=== PATIENT | female | born 1950 | race Caucasian/White ===

== ENCOUNTER 2022-05-28 07:40 | Outpatient (CLI) | payer MEDICARE, SELFPAY ==
[2022-05-28 08:45] LABS: Glucose, Point-of-Care* 167 mg/dl (60-115)
--- NOTE | 2022-05-28 10:38 | W.ANESCHARGE ---
Anesthesia Charges Start Date/Time Anesthesia Start Date: 05/28/22 Anesthesia Start Time: 08:37 Stop Date/Time Anesthesia Stop Date: 05/28/22 Anesthesia Stop Time: 09:40 Summary Emergency: No Extremes of Age: Over 68-CPT 24549
--- NOTE | 2022-05-28 11:32 | W.ANESCHARGE ---
Anesthesia Charges Start Date/Time Anesthesia Start Date: 05/28/22 Anesthesia Start Time: 08:37 Stop Date/Time Anesthesia Stop Date: 05/28/22 Anesthesia Stop Time: 09:40 Summary Emergency: No Extremes of Age: Over 68-CPT 44699
== END 2022-05-28 07:41 | disposition home or self-care (01) ==
PROVIDERS: PCP Family Medicine; Visit Provider Surgery
DX: D12.7 Benign neoplasm of rectosigmoid junction (principal); D12.2 Benign neoplasm of ascending colon; D12.4 Benign neoplasm of descending colon; D12.5 Benign neoplasm of sigmoid colon; R19.5 Other fecal abnormalities
CPT/HCPCS: 00811; 45381; 45385; 82947; 88305; 99100; J2704

== ENCOUNTER 2023-06-23 14:20 | Outpatient (CLI) | payer MEDICARE, SELFPAY ==
[2023-06-23 22:03] LABS: Basophils Absolute Auto 0.03 K/uL (0.00-0.30); Basophils Percent Auto 0.3 % (0.0-3.0); Eosinophils Absolute Auto 0.18 K/uL (0.00-0.50); Hematocrit 37.8 % (33.0-51.0); Hemoglobin* 12.1 gm/dL (12.0-16.0); Immature Granulocytes Abs Auto 0.05 K/uL (0.00-0.30); Immature Granulocytes Pct Auto 0.5 %; Lymphocytes Absolute Auto 3.29 K/uL (0.90-2.90); Lymphocytes Percent Auto 35.8 % (20-44); Mean Corpuscular HGB Conc 32 gm/dL (32-36); Mean Corpuscular Hemoglobin 32 pg (26-34); Mean Corpuscular Volume 100 fL (80-100); Neutrophils Percent Auto 52.4 % (42.0-72.0); Platelet Count* 219 K/uL (140-440); RDW Coefficient of Variation % 13.5 % (11.5-15.5); Red Blood Count 3.78 m/uL (4.00-5.20); White Blood Count* 9.18 K/uL (4.50-11.00)
[2023-06-23 22:05] LABS: Slide Review Reflex No
[2023-06-23 22:16] LABS: Chloride* 104 mmol/L (96-114); Potassium* 4.5 mmol/L (3.6-5.1); Sodium* 140 mmol/L (135-149)
[2023-06-23 22:18] LABS: Alanine Aminotransferase* 34 U/L (4-35); Cholesterol* 174 mg/dL (90-199); Creatinine* 0.6 mg/dL (0.5-1.5); Estimated Glomerular Filt Rate 94 ml/min
[2023-06-23 22:19] LABS: Blood Urea Nitrogen* 18 mg/dL (7-30); Calcium* 9.6 mg/dL (8.4-10.6); Carbon Dioxide* 24 mmol/L (20-32); Glucose* 117 mg/dL (60-115); Triglycerides* 242 mg/dL (40-149)
[2023-06-23 22:20] LABS: HDL Cholesterol* 68 mg/dL (>=50); LDL Cholesterol Calculated 58 mg/dL (<100)
== END 2023-06-23 14:21 | disposition home or self-care (01) ==
PROVIDERS: PCP Family Medicine; Visit Provider Family Medicine
DX: E11.9 Type 2 diabetes mellitus without complications (principal); E78.5 Hyperlipidemia, unspecified; I10 Essential (primary) hypertension
CPT/HCPCS: 80048; 80061; 84460; 85025

== ENCOUNTER 2024-07-06 09:52 | Outpatient (CLI) | payer MEDICARE, SELFPAY | END 2024-07-06 09:53 | disposition home or self-care (01) | PROVIDERS: PCP Family Medicine; Visit Provider Family Medicine | DX: E78.5 Hyperlipidemia, unspecified (principal); E55.9 Vitamin D deficiency, unspecified; I10 Essential (primary) hypertension; E11.9 Type 2 diabetes mellitus without complications | CPT/HCPCS: 80048; 80061; 84460 ==

== ENCOUNTER 2024-07-23 08:43 | Outpatient (CLI) | payer MEDICARE, SELFPAY | END 2024-07-23 08:44 | disposition home or self-care (01) | LOC: RAD 08:43 | PROVIDERS: PCP Family Medicine; Visit Provider Family Medicine | DX: R01.1 Cardiac murmur, unspecified (principal); I35.0 Nonrheumatic aortic (valve) stenosis | CPT/HCPCS: 93306 ==

== ENCOUNTER 2024-10-06 08:54 | Outpatient (CLI) | payer MEDICARE, SELFPAY ==
--- OUTSIDE RECORDS SUMMARY | 2024-10-06 08:57 | XMS_ITS | Clinical Summary ---
Author Organization [facility] Address [place], [place] [address] Care Team Providers Care Uniform Room Attendant Name Role Phone Jem Diaz MD Primary Care Provider + Allergies No known active allergies Medications Medication Sig Dispensed Refills Start Date End Date Status lisinopril (PRINIVIL; ZESTRIL) 20 mg tabletIndications:Essen tial hypertension Take 1 tablet by mouth once daily. 90 tablet 3 09/11/2018 Active metoprolol succinate (TOPROL XL) 100 mg Sustained-Release tabletIndications:Essen tial hypertension Take 1 tablet by mouth once daily. 90 tablet 3 09/11/2018 Active atorvastatin (LIPITOR) 20 mg tabletIndications:Hyper lipidemia, unspecified hyperlipidemia type Take 1 tablet by mouth once daily. 90 tablet 3 09/11/2018 Active WalkerIndications:Prima ry osteoarthritis of both hips Walker with front wheels for home use. 1 Device 09/11/2018 Active aspirin (ECOTRIN) 81 mg enteric coated tabletIndications:Statu s post total hip replacement, right Take 1 Tablet (81 mg) by mouth once daily with a meal. 09/06/2024 Active metFORMIN (GLUCOPHAGE XR) 500 mg Extended-Release tablet Take 1,000 mg by mouth two times daily with meals. 08/09/2024 Active glimepiride (AMARYL) 4 mg tablet Take 4 mg by mouth once daily with a meal. 08/09/2024 Active VITAMIN B COMPLEX ORAL Take 1 Tablet by mouth once daily. Active Active Problems Problem Noted Date Diagnosed Date Morbid (severe) obesity due to excess calories 1 Type 2 diabetes mellitus wit h diabetic nephropathy, with long-term current use of insulin 09/06/2024 Status post total hip replacement, right 020 Primary osteoarthritis of left hip 09/17/2019 S/P hip replacement, left 09/17/2019 Hyperlipidemia 07/21/2016 Hypertension 07/12/2016 Left Hip osteoarthritis 07/13/2012 Degeneration of lumbar or lumbosacral interverte bral disc 07/13/2012 Vitamin D deficiency 05/02/2011 Esophageal reflux 01/07/2008 Resolved Problems Problem Noted Date Diagnosed Date Resolved Date Hyperlipidemia 04/17/2010 07/21/2016 Unspecified essential hypertension 01/07/2008 07/12/2016 HYPOTHYROIDISM 01/07/2008 03/30/2013 Encounters Date Type Department Care Team Description 09/24/2024 Telephone [facility] [employer] [address] [facility] [address] [place] [phone] Dane Sparks MD Surgery Scheduled (TAVR scheduling. ) 09/16/2024 Telephone [facility] [address] [place] [address] Dane Sparks MD Questions 09/06/2024 4:00 PM CDT Office Visit [facility] [employer] [address] [place] [address] [place] [phone] Noel Osorio MD Shortness Of Breath 09/06/2024 3:30 PM CDT Office Visit [facility] [employer] [address] [place] [address] [place] [phone] Dane Sparks MD CV Valve New (VALVE NEW: , CT TAVR PRIOR, NEEDS EKG, KCCQ12, 5M WALK, LETTER SENT, JLS//PCP: Jem Diaz MD/) 09/06/2024 1:40 PM CDT - 09/06/2024 11:59 PM CDT Hospital Encounter [facility] [address] [place] [address] Jem Tse MD Nonrheumatic aortic valve disorder 09/06/2024 Travel 08/19/2024 8:30 AM CDT Office Visit [facility] at [address] [address] Jem Tse MD Consult 07/23/2024 9:00 AM CDT Ancillary Procedure [facility] [address] [place] [address] from Last 3 Months Immunizations Name Administration Dates Next Due Influenza, High-dose Inactivated 07/12/2016 Influenza, Inactivated IIV3 (Age 65+ Years) Preserv Free 09/11/2018 Pneumococcal Poly,23-Valent (Pneumovax) 04/19/20 14 Pneumococcal conj 13-Valent (Prevnar 13) 016 Td (Age >=7 Years) 11/03/2006 Tdap 07/12/2016 Zoster (Zostavax-ZVL, live) 05/30/2014 Family History Medical History Relation Name Comments Cancer-breast Daughter BRIONNA Hypertension Daughter BRIONNA Heart Disease Mother CHF Hypertension Mother Heart Disease Paternal Grandfather SC Relation Name Status Comments Daughter BRIONNA Alive Mother Paternal Grandfather Social History Tobacco Use Types Packs/Day Years Used Date Smoking Tobacco: Never Smokeless Tobacco: Never Tobacco Cessation:Counseling Given: Yes Alcohol Use Standard Drinks/Week Comments Not Currently 0 (1 standard drink = 0.6 oz pur e alcohol) social events, 1-2 PHQ-2 Answer Date Recorded PHQ-2 Score 2 01/18/2019 Sex and Gender Information Value Date Recorded Sex Assigned at Not on file Gender Identity Not on file Sexual Orientation Not on file Obstetrics History Last Filed Vital Signs Vital Sign Reading Time Taken Comments Blood Pressure 145/69 09/06/2024 3:00 PM CDT Pulse 68 09/06/2024 3:00 PM CDT Temperature 36.3 C (97.3 F) 12/03/2019 8:16 AM MRI SPECIALIST Respiratory Rate 14 08/19/2024 8:58 AM CDT Oxygen Saturation 93% 09/06/2024 3:00 PM CDT Inhaled Oxygen Concentration - - Weight 115.3 kg (254 lb 1.6 oz) 09/06/2024 3:00 PM CDT Height 162.6 cm (5' 4) 09/06/2024 3:00 PM CDT Body Mass Index 43.62 09/06/2024 3:00 PM CDT Plan of Treatment Upcoming Encounters Date Type Department Care Team (Late st Contact Info) Description 10/27/2024 1:30 PM MRI SPECIALIST Orders Only [facility] [address] [place] [address] [place] [phone] 10/27/2024 2:00 PM MRI SPECIALIST Office Visit [facility] [address] [place] [address] [place] [phone] 11/04/2024 2:30 PM MRI SPECIALIST Appointment [facility] [address] [place] [address] Dane Sparks MD [address] [address] Health Maintenance Due Date Last Done Comments Hepatitis C screening for ag e 18-79 1966 DEXA/DXA scan for age 65+ 2013 Medicare Wellness for age 65+ 2013 Zoster (shingles) series for age 50+ (2 of 3) 07/25/2014 05/30/2014 Depression screening for age 12+ 09/11/2019 09/11/2018, 06/03/2017, 07/12/2016 RSV vaccine for adults or (1 - 1-dose 75+ series) 2023 Influenza for age 65+ 07/18/2024 09/11/2018, 016 BMI (ht and wt on same day) for age 18+ 09/06/2025 09/06/2024, 09/11/2018, 06/03/2017, Additional history exists Tetanus booster 07/12/2026 07/12/2016, 11/03/2006 Pneumococcal series for age 65+ Completed , 04/19/2014 Tdap Completed 07/12/2016 COVID-19 vaccine series Completed 08/21/20, 02/06/2022, 02/20/2021, Additional history exists Medical Devices Implanted Type Area Fabricator Artificial Breast Device Identifier Shelf Expiration Date Model / Serial / Lot Cluster Acetabular Shell Implanted:Qty: 1 on 09/17/2019 by Blas Miranda MD at [facility] Left: Hip [facility] 02/16/2024 / / [id number] 0deg Polyethylene Liner Implanted:Qty: 1 on 09/17/2019 by Blas Miranda MD at [facility] Left: Hip [employer] [facility] 01/20/2024 / / [id number] 132 Deg Neck Angle Hip Stem Implanted:Qty: 1 on 09/17/2019 by Blas Miranda MD at [facility] Left: Hip [employer] [facility] 06/12/2024 / / [id number] Ceramic V40 Femoral Head Implanted:Qty: 1 on 09/17/2019 by Blas Miranda MD at [facility] Left: Hip [employer] 07/26/2024 / / [id number] Shell Implanted:Qty: 1 on 11/30/2019 by Blas Miranda MD at [facility] Right: Hip [employer] 04/20/2024 / / [id number] Poly Insert Implanted:Qty: 1 on 11/30/2019 by Blas Miranda MD at [facility] Right: Hip [facility] 09/07/2024 / / [id number] Hip Stem Implanted:Qty: 1 on 11/30/2019 by Blas Miranda MD at [facility] Right: Hip [employer] [facility] 07/22/2024 / / [id number] Femoral Head Implanted:Qty: 1 on 11/30/2019 by Blas Miranda MD at [facility] Right: Hip [facility] 08/12/2024 / / [id number] Procedures Procedure Name Priority Date/Time Associated Diagnosis Comments EKG 12 LEAD Routine 09/06/2024 3:15 PM CDT Nonrheumatic aortic valve disorder CTA CHEST ABD PELVIS TAVR - DUAL READ Routine 09/06/2024 2:21 PM CDT Nonrheumatic aortic valve disorder CREATININE,ISTAT Routine 09/06/2024 2:11 PM CDT ECHO TTE COMPLETE WO CONTRAST Routine 07/23/2024 10:10 AM CDT Cardiac murmur, unspecified from Last 3 Months Results * EKG 12 LEAD (09/06/2024 3:15 PM CDT) Interpretation Normal sinus rhythm Minimal voltage criteria for LVH, may be normal variant ( R in aVL ) Cannot rule out Anterior infarct , age undetermined Abnormal ECG Ventricular Rate 77 BPM Atrial Rate 77 BPM P-R Interval 202 ms QRS Duration 80 ms QT 358 ms QTc 405 ms P [place] 22 degrees R [place] 3 degrees T [place] 64 degrees 09/06/2024 3:15 PM CDT 09/07/2024 11:44 AM CDT Dane Sparks MD EKG ORD * CTA CHEST ABD PELVIS TAVR - DUAL READ (09/06/2024 2:21 PM CDT) Anatomical Region Laterality Modality CHEST, Abdomen, Pelvis Computed Tomography Narrative 09/09/2024 8:00 AM CDT Images from the original result were not included. STUDY: CTA CHEST, ABDOMEN, AND PELVIS PRE-TAVR Study date: 09/06/2024 Indication: 74-year-old female with morbid obesity and severe aortic valvular stenosis has been referred for evaluation of aortic valve annulus, thoracic aorta anatomy, and arterial access anatomy to determine candidacy for transcatheter aortic valve replacement (TAVR) procedure. STUDY PARAMETERS: Scanner: Siemens Definition Force Contrast: 120 ml of Omnipaque 350 Scan protocol: Helical with dose modulation for heart image acquisition. High-pitch for chest, abdomen, and pelvis image acquisition. Radiation dose length product: 2678 for heart and chest, abdomen, pelvis imaging. Image quality: Good FINAL IMPRESSIONS: 1. Bicuspid AV with fusion of the right and left coronary cusps (type I) with severe calcification and reduced leaflet opening. AV calcium score is 3095 AU. 2. Nonobstructive coronary artery disease - no need for coronary angiogram prior to TAVR. 3. Mildly dilated ascending aorta 41 x 40 mm. Normal abdominal aortic size and morphology. Mild atheromatous disease through the entire aorta. 4. Borderline left main height take off at 10.2 mm. 5. Best fitting TAVR device option is #29 mm S3 which has a lot of oversizing (14.8%). The #29 mm Evolut is not possible due to average SoV < 29 mm. - Steep LV-Ao angle: 73 degrees. 6. Transfemoral access while possible for either side for caliber perspective is challenged by the deep subcutaneous pannus (> 7-8 cm). Carotid access is possible from either side. 7. Elevated myocardial ECV=37% 8. Please see radiology section for noncardiovascular findings. FINDINGS: Aortic valve annulus and outflow tract: Aortic valve: Bicuspid AV with fusion of the right and left coronary cusps (type I) with severe calcification and reduced leaflet opening excursion. Ca score 3095. Projection angle recommendations: Arterial access: Pelvic arteries (RIGHT): Common iliac artery: Nonobstructive atherosclerosis Internal iliac artery: Nonobstructive atherosclerosis External iliac artery: Nonobstructive atherosclerosis Common femoral artery: Patent Pelvic arteries (LEFT): Common iliac artery: Nonobstructive atherosclerosis Internal iliac artery: Nonobstructive atherosclerosis External iliac artery: Nonobstructive atherosclerosis Common femoral artery: Patent Other findings: Coronary arteries: Dominance: Right Left main: Normal. Left anterior descending artery: Nonobstructive coronary artery disease in the proximal and mid vessel. Left circumflex artery: Nonobstructive coronary artery disease in the proximal vessel. Right coronary artery: Nonobstructive coronary artery disease in the proximal vessel. Left atrium: Normal contrast opacification. Left ventricle septal ECV: 37% when using an estimated Hct 40% (no recent Hct available). Pericardium: Normal without effusion. Thoracic aorta: Normal branching pattern, type 1 arch. Mild atheromatous disease through the arch. Arch does not exhibit acute angulation. Maximum cross-sectional dimensions are: Aortic sinus: 33 x 32 x 32 mm maximum [id number]. Ascending aorta: 41 x 40 mm. Arch: 24 x 24 mm. Descending thoracic aorta: 25 x 25 mm. Abdominal aorta: Normal size with mild atheromatous disease. Abdominal aorta branch arteries: Celiac artery: Patent. Superior mesenteric artery: Patent. Right renal artery: Patent. Left renal artery: Patent. Inferior mesenteric artery: Patent. FOR PATIENT: Results are automatically released to your [employer]) account once available, in compliance with federal regulations. This means that you may see your results before your provider has had a chance to review them. Please allow 2-3 business days for your provider to comment on the results. For Patients: As a result of the Century Cures Act, medical imaging exams and procedure reports are released immediately into your electronic medical record. You may view this report before your referring provider. If you have questions, please contact your health care provider. OVER-READ OVER-READ OVER-READ OVER-READ: DETAILED RADIOLOGY EXTRACARDIAC OVER-READ OF CARDIAC CT 09/06/2024 TECHNIQUE: Please see cardiology report for technical information. 1120 cc Omnipaque-350 intravenous contrast. This exam is being performed in conjunction with the services provided by the [facility] CLINICAL HISTORY: Cardiac over-read. FINDINGS: Multiple small intra pulmonary nodular densities bilateral. 5 mm nodule inferior segment left lingula slice 160 series 16. 5 mm noncalcified nodule left lung apex slice 48 series 16. Calcified granuloma left upper lobe slice 20 series 16. 3 mm noncalcified nodule right upper lobe slice 114 series 16. 3 mm subpleural noncalcified nodule right middle lobe slice 129 series 16. 3 mm noncalcified nodule right middle lobe slice 148 series 16. No evidence of pleural effusion. No abnormal mediastinal or hilar lymphadenopathy. No focal hepatic or splenic pathology. No pancreatic pathology. Gallbladder is unremarkable. No adrenal pathology. Kidneys are unremarkable. No retroperitoneal lymphadenopathy. Bilateral total hip arthroplasty. Impression : 1. Multiple 3-5 mm noncalcified nodules both lungs; follow-up chest CT in 6 months suggested. 2. Bilateral total hip arthroplasty. Please note that all CT scans at this facility use dose modulation, iterative reconstruction, and/or weight-based dosing when appropriate to reduce radiation dose to as low as reasonably achievable. Dictated by: Peyman Jackson MD @ 09/08/2024 12:34:23 (Electronic Signature) Jem Tse MD CT * CREATININE,ISTAT (09/06/2024 2:11 PM CDT) CREATININE, POCT 0.60 0.57 - 1.11 mg/dL 09/06/2024 3:07 PM CDT [email or web address] eGFR >90 >90 mL/min/1.7 3m2 09/06/2024 3:07 PM CDT [facility] Comment:As of 2022, eG FR is calculated by the CKD-EPI creatinine equation without race adjustment. eGFR can be influenced by muscle mass, exercise, and diet. The reported eGFR is an estimation only and is only applicable if the renal function is stable. Blood BLOOD SPECIMEN / Unknown 09/06/2024 2:11 PM CDT 09/06/2024 3:06 PM CDT Jem Tse MD CHEMISTRY [facility] [address] [place] [id number], * ECHO TTE COMPLETE WO CONTRAST (07/23/2024 10:10 AM CDT) AORTIC VALVE MEAN PG 49 mmHg LVEDD 4.0 cm EJECTION FRACTION 60 - 65% Anatomical Region Laterality Modality Ultrasound 07/23/2024 9:04 AM CDT Narrative 07/23/2024 10:25 AM CDT ECHOCARDIOGRAM JESSICA LEDBETTER : 1950 74 years Study Date: 07/23/2024 9:04:42 AM Gender: F BP: 165/77 mmHg Height: 163.00 cm BSA: 2.25 m Weight: 125.00 kg Tech: [facility] Referring MD: JEM DIAZ Site: [facility] Reading Location: [facility] Patient Location: Outpatient. Procedure: 2D, Color Doppler and Spectral Doppler. Indication for study: Murmur Cardiac Rhythm: Regular.Study quality: Technically limited. Imaging limitations: This study was subject to imaging limitations due to body habitus. Final Impressions: 1. Technically limited exam. 2. Normal LV size, mildly increased wall thickness, normal function with an estimated EF of 60 - 65%. 3. Right ventricular cavity size is normal, global systolic RV function is normal. 4. The aortic valve is calcified, leaflet morphology poorly visualized. Severe stenosis and no regurgitation. JOSEY 0.8cm2, MG 49mmHg, Vmax 4.4m/s. 5. The ascending aorta is dilated with a maximal diameter of 4.1 cm. 6. Based on the echo findings, recommend cardiology consult. Comparison There are no prior studies on this patient for comparison purposes. Chamber Sizes and Function Normal left ventricular size, mildly increased wall thickness, normal global systolic function with an estimated EF of 60 - 65%. Left atrial size is normal. Right ventricular cavity size is normal, global systolic RV function is normal. RV wall thickness is normal. The right atrium is normal. The pulmonary artery is of normal size and origin. The sinus of Valsalva is normal sized. The ascending aorta is dilated. Valves, RV Pressures and Diastolic Function The aortic valve is calcified, severe stenosis and no regurgitation. The mitral valve is normal in structure, trace mitral regurgitation. Indeterminate pattern of LV diastolic filling. The tricuspid valve is normal in structure. Tricuspid regurgitation is trace regurgitation. The pulmonic valve is not well visualized. Unable to determine pulmonary regurgitation. Masses, Effusion, Shunts There is no pericardial effusion. The inferior vena cava is normal sized, respiratory size variation less than 50%. No left to right shunting was detected by limited color flow Doppler interrogation of the interatrial septum. MEASUREMENTS AND CALCULATIONS 2-D Measurements and LV Function: LVID (d) 4.0 cm LVOT diameter 2.2 cm IVS (d) 1.4 cm HR 67 bpm LVPW (d) 1.3 cm LA Vol index 25 ml/m2 Ao Sinus 3.1 cm RV Max 4C (d) 4.2 cm Asc Ao 4.1 cm Diastology: Mitral Tissue Doppler E Peak 0.7 m/s e', Septum 0.05 m/s A Peak 1.2 m/s e', Lateral 0.04 m/s E/A 0.6 E/e' Average 15.03 DT 297 msec Aortic Valve: Vmax 4.4 m/s JOSEY (V) 0.82 cm VTI 1.13 m JOSEY (I) 0.83 cm LVOT V max 0.9 m/s Max PG 79 mmHg LVOT VTI 0.24 m Mean PG 49 mmHg SV 94 ml Dim Index 0.22 SV index 42 ml/m CO 6.3 l/min CI 2.8 l/min/m Mitral Valve: MVA 2.6 cm MV P 1/2 86 msec Tricuspid Valve and estimated PA pressures: TAPSE 1.5 cm . This study was interpreted by an IAC accredited facility. CC: [facility] ([facility]) [facility]. Final Procedure Note Darryn Oscar MD - 07/23/2024 ECHOCARDIOGRAM JESSICA LEDBETTER : 1950 74 years Study Date: 07/23/2024 9:04:42 AM Gender: F BP: 165/77 mmHg Height: 163.00 cm BSA: 2.25 m Weight: 125.00 kg Tech: [facility] Referring MD: JEM DIAZ Site: [facility] Reading Location: [facility] Patient Location: Outpatient. Procedure: 2D, Color Doppler and Spectral Doppler. Indication for study: Murmur Cardiac Rhythm: Regular.Study quality: Technically limited. Imaging limitations: This study was subject to imaging limitations due tobody habitus. Final Impressions: 1. Technically limited exam. 2. Normal LV size, mildly increased wall thickness, normal function withan estimated EF of 60 - 65%. 3. Right ventricular cavity size is normal, global systolic RV functionis normal. 4. The aortic valve is calcified, leaflet morphology poorly visualized.Severe stenosis and no regurgitation. JOSEY 0.8cm2, MG 49mmHg, Vmax4.4m/s. 5. The ascending aorta is dilated with a maximal diameter of 4.1 cm. 6. Based on the echo findings, recommend cardiology consult. Comparison There are no prior studies on this patient for comparison purposes. Chamber Sizes and Function Normal left ventricular size, mildly increased wall thickness, normalglobal systolic function with an estimated EF of 60 - 65%. Left atrialsize is normal. Right ventricular cavity size is normal, global systolicRV function is normal. RV wall thickness is normal. The right atrium isnormal. The pulmonary artery is of normal size and origin. The sinus ofValsalva is normal sized. The ascending aorta is dilated. Valves, RV Pressures and Diastolic Function The aortic valve is calcified, severe stenosis and no regurgitation. Themitral valve is normal in structure, trace mitral regurgitation.Indeterminate pattern of LV diastolic filling. The tricuspid valve isnormal in structure. Tricuspid regurgitation is trace regurgitation. Thepulmonic valve is not well visualized. Unable to determine pulmonaryregurgitation. Masses, Effusion, Shunts There is no pericardial effusion. The inferior vena cava is normal sized,respiratory size variation less than 50%. No left to right shunting wasdetected by limited color flow Doppler interrogation of the interatrialseptum. MEASUREMENTS AND CALCULATIONS 2-D Measurements and LV Function: LVID (d) 4.0 cm LVOT diameter 2.2 cm IVS (d) 1.4 cm HR 67 bpm LVPW (d) 1.3 cm LA Vol index 25 ml/m2 Ao Sinus 3.1 cm RV Max 4C (d) 4.2 cm Asc Ao 4.1 cm Diastology: Mitral Tissue Doppler E Peak 0.7 m/s e', Septum 0.05 m/s A Peak 1.2 m/s e', Lateral 0.04 m/s E/A 0.6 E/e' Average 15.03 DT 297 msec Aortic Valve: Vmax 4.4 m/s JOSEY (V) 0.82 cm VTI 1.13 m JOSEY (I) 0.83 cm LVOT V max 0.9 m/s Max PG 79 mmHg LVOT VTI 0.24 m Mean PG 49 mmHg SV 94 ml Dim Index 0.22 SV index 42 ml/m CO 6.3 l/min CI 2.8 l/min/m Mitral Valve: MVA 2.6 cm MV P 1/2 86 msec Tricuspid Valve and estimated PA pressures: TAPSE 1.5 cm . This study was interpreted by an IAC accredited facility. CC: [facility] (med records) [facility]. Final Jem Diaz MD ECHO ORD from Last 3 Months Advance Directives * Full Code (Latest Code Status on File) Date Activated Date Inactivated Comments 11/30/2019 3:16 PM 12/03/2019 4:46 PM * Full Code Date Activated Date Inactivated Comments 11/30/2019 10:28 AM 11/30/2019 3:15 PM * Full Code Date Activated Date Inactivated Comments 09/20/2019 1:08 PM 09/28/2019 7:36 AM Question Answer Comments Code Status Discussion: Per Existing Order * Full Code Date Activated Date Inactivated Comments 09/17/2019 11:57 AM 09/20/2019 1:03 PM * Full Code Date Activated Date Inactivated Comments 09/17/2019 6:09 AM 09/17/2019 11:56 AM Care Teams Uniform Room Attendant Relationship Specialty Start Date End Date Jem Diaz MD [address] [place] [address] PCP - General 11/03/06
== END 2024-10-06 08:55 | disposition home or self-care (01) ==
PROVIDERS: PCP Family Medicine; Visit Provider Family Medicine
DX: E11.9 Type 2 diabetes mellitus without complications (principal); I10 Essential (primary) hypertension; E78.2 Mixed hyperlipidemia; Z13.9 Encounter for screening, unspecified
CPT/HCPCS: 80048; 85025

== ENCOUNTER 2024-11-23 13:23 | Outpatient (CLI) | payer MEDICARE, SELFPAY | END 2024-11-23 13:24 | disposition home or self-care (01) | LOC: FBOREF 13:23 | PROVIDERS: PCP Family Medicine; Visit Provider Family Medicine | DX: I35.0 Nonrheumatic aortic (valve) stenosis (principal) | CPT/HCPCS: 80048; 85025 ==

== ENCOUNTER 2024-12-01 08:51 | Outpatient (CLI) | payer MEDICARE, SELFPAY | END 2024-12-01 08:52 | disposition home or self-care (01) | LOC: RAD 08:54 | PROVIDERS: PCP Family Medicine; Visit Provider Physician Assistant Medical | DX: I35.0 Nonrheumatic aortic (valve) stenosis (principal); I34.0 Nonrheumatic mitral (valve) insufficiency | CPT/HCPCS: 93308; 93321; 93325 ==

== ENCOUNTER 2025-05-31 16:41 | Outpatient (CLI) | payer MEDICARE, SELFPAY | END 2025-05-31 16:42 | disposition home or self-care (01) | LOC: FBOREF 16:43 | PROVIDERS: PCP Family Medicine; Visit Provider Family Medicine | DX: E78.2 Mixed hyperlipidemia (principal); I10 Essential (primary) hypertension; R53.83 Other fatigue | CPT/HCPCS: 80048; 80061; 84443 ==